=== PATIENT | female | born 1970 | race Caucasian/White ===

== ENCOUNTER 2016-09-09 15:40 | Emergency (ER) | payer OTHER ==
[2016-09-09] MEDS ORDERED: ADENOSINE 3 MG/ML SOL IV ONE (15:51)
[2016-09-09] MEDS ORDERED: SODIUM CHLORIDE 0.9% 1000ML 1,000 ML IV ONE (15:54)
[2016-09-09 16:12] LABS: HEMATOCRIT 44 % (35-47); MEAN CORPUSCULAR HGB CONC 34.7 gm/dl (32.0-36.0); MEAN CORPUSCULAR VOLUME 94 fL (81-99)
[2016-09-09 16:14] LABS: CALCIUM 8.8 mg/dl (8.5-10.1); GLOM FILT RATE 75 mL/min (>60); MAGNESIUM 1.6 mg/dl (1.8-2.4); POTASSIUM 3.3 mMol/L (3.5-5.1); SODIUM 136 mMol/L (136-145)
[2016-09-09 16:17] VITALS: TEMP 98.7
[2016-09-09] MEDS ORDERED: POTASSIUM CHLORIDE 10 MEQ TER PO ONE ×2 (16:29→18:52)
[2016-09-09] MEDS ORDERED: MAGNESIUM SULFATE 1 GM/2 ML SOL IV ONE (16:29)
[2016-09-09 16:30] VITALS: O2SAT 98
[2016-09-09] MEDS ORDERED: ACETAMINOPHEN 325 MG PO ONE (16:34)
[2016-09-09] MEDS ORDERED: POTASSIUM CHLORIDE 10 MEQ TER ONE ×2 (16:35→18:52)
[2016-09-09] MEDS ORDERED: MAGNESIUM SULFATE 5 GM/10 ML SOL ONE (16:35)
[2016-09-09] MEDS ORDERED: ACETAMINOPHEN 325 MG ONE (16:42)
[2016-09-09 16:44] LABS: BASOPHILS % (MANUAL) 0 % (0-3); EOSINOPHILS % (MANUAL) 0 % (0-9); LYMPHOCYTES % (MANUAL) 51 % (10-50)
[2016-09-09 18:34] LABS: APPEARANCE,URINE Clear; BILIRUBIN,URINE NEGATIVE (NEGATIVE); COLOR,URINE Light yellow; GLUCOSE, URINE (UA) NEGATIVE (NEGATIVE); KETONES,URINE NEGATIVE (NEGATIVE); LEUKOCYTE ESTERASE ,URINE NEGATIVE (NEGATIVE); NITRATE,URINE NEGATIVE (NEGATIVE); OCCULT BLOOD,URINE TRACE LYSED (NEG-TRACE); PH,URINE 5.5; UROBILINOGEN,URINE 0.2 (0.2-1.0 EU)
[2016-09-09 18:37] LABS: RBC,URINE NEG (0-3AV/HPF); WBC,URINE NEG (0-5AV/HPF)
[2016-09-09 19:12] VITALS: BP 133/88; PULSE 87; RESP 20
== END 2016-09-09 19:05 | disposition home or self-care (01) ==
LOC: ED 15:40
DX: I47.1 Supraventricular tachycardia (principal); E87.6 Hypokalemia; E83.42 Hypomagnesemia
CPT/HCPCS: 99285 ×3; 80048; 81001; 83735; 84484; 85007; 85027; 93005; J0153; J3475 ×2; 71010